=== PATIENT | male | born 1995 | race African-American/Black ===

== ENCOUNTER 2024-04-01 10:05 | Emergency (ER) | payer BC ==
[~2024-04-01] VITALS: Ht 182.9 cm; Wt 86.2 kg
[2024-04-01] MEDS ORDERED: BIKTARVY 50-201 EACH (10:55)
[2024-04-01] MEDS ORDERED: GENTAMICIN SULFATE 0.15 MG/DR DROPS 5ML OP ONE ×2 (11:00→11:20)
== END 2024-04-01 11:27 | disposition home or self-care (01) ==
LOC: ER 10:08
DX: S05.8X2A Other injuries of left eye and orbit, initial encounter (principal); X58.XXXA Exposure to other specified factors, initial encounter; Y93.89 Activity, other specified; Y92.89 Other specified places as the place of occurrence of the external cause; Y99.8 Other external cause status